=== PATIENT | male | born 1985 | race Caucasian/White ===

== ENCOUNTER 2025-01-05 13:35 | Emergency (ER) | payer OTHER ==
[~2025-01-05] VITALS: Ht 172.7 cm; Wt 131.5 kg
[~2025-01-05 13:35] MED LIST: AMOX500 PO; OXYACE7.5T PO; RXOXYACE PO
== END 2025-01-05 15:56 | disposition home or self-care (01) ==
LOC: ER 13:35
DX: S99.911A Unspecified injury of right ankle, initial encounter (principal); Z88.1 Allergy status to other antibiotic agents; X58.XXXA Exposure to other specified factors, initial encounter; Y93.A1 Activity, exercise machines primarily for cardiorespiratory conditioning
CPT/HCPCS: 73610; 99283-25